=== PATIENT | male | born 1960 | race Caucasian/White ===

== ENCOUNTER 2024-04-22 06:08 | Day surgery (SDC) | payer BC, MEDICARE ==
[2024-04-21 13:59] VITALS: BMI 30.9
[2024-04-22] MEDS ORDERED: PROPOFOL 20 ML ONE ×2 (07:39→08:03)
[2024-04-22] MEDS ORDERED: PHENYLEPHRINE-NS 100 MCG/ML 10 ML SYRINGE ONE (07:45)
[2024-04-22] MEDS ORDERED: Midazolam HCl 2 mg/2 ml Vial ONE (07:45)
[2024-04-22] MEDS ORDERED: Lidocaine 1% PF 5 ML VIAL ONE (07:45)
== END 2024-04-22 09:35 | disposition home or self-care (01) ==
LOC: SDC 06:08
PROVIDERS: ATTEND Internal Medicine Gastroenterology
PROC: 0DJD8ZZ Inspection of Lower Intestinal Tract, Via Natural or Artificial Opening Endoscopic (ICD-10-PCS; principal; 2024-04-22)
DX: Z12.11 Encounter for screening for malignant neoplasm of colon (principal); R19.5 Other fecal abnormalities; K64.8 Other hemorrhoids; E78.00 Pure hypercholesterolemia, unspecified; E07.9 Disorder of thyroid, unspecified; Z79.890 Hormone replacement therapy; Z79.899 Other long term (current) drug therapy; Z88.2 Allergy status to sulfonamides
CPT/HCPCS: J2250; J2704